=== PATIENT | female | born 1990 | race Caucasian/White ===

== ENCOUNTER 2018-12-25 11:59 | Emergency (ER) | payer SELFPAY ==
[2018-12-25 12:04] VITALS: BMI 18.8
--- NOTE | 2018-12-25 12:27 | PDOC ---
History of Present Illness <Laquita Díaz - Last Filed: 12/25/18 18:01> - General History Source: Patient Exam Limitations: No Limitations - History of Present Illness Initial Comments: 28 yo F w a hx of kidney stones, kidney infections, and migraines presents to the [place] ER with Right flank pain which radiates to her RLQ and to her groin. She states she has a hx of many kidney stones and this feels very similar to all of her stones. She recently moved from [place] to [place] and does not yet have a PCP but saw Dr. Del Cid the Urologist for her kidney stones last week. She received an ultrasound there which showed that she has a stone. Today she has taken 650 mg of tylenol as well as 600 mg of ibuprofen with minimal relief of her flank pain. She now rates the pain as 7/10 in intensity. She has tried copius hydration, drinking lemon juice, and celery juice, and applying external heating pads with minimal relief. In the past all of her stones have passed on their own without needing lithotripsy or other urological intervention. She endorses dysuria as well as urinary frequency but denies urgency or hesitancy. Her LMP was in mid August secondary to her control pills which she takes that she says cause her to have a period only once every 6 months. She denies any abnormal vaginal discharge, vaginal bleeding, urgency, hesitancy , fevers, chills, infections, headache, blurry vision, neck pain, SOB, difficulty breathing, upper back pain, chest pain, ankle/arm swelling, urinary retention, vertigo, numbness, tingling, nausea, vomiting, diarrhea, or constipation. PCP: None yet, just moved from [place] Urologist: Dr. Del Cid PSH: Tonsillectomy, cholecystectomy Allergies: Sulfa drugs Social Hx: Drinks recreationally. Denies smoking, or other drug usage. <Osiel Smith - Last Filed: 12/25/18 19:41> - General Chief Complaint: Pain, Acute Stated Complaint: RIGHT FLANK PAIN Time Seen by Provider: 12/25/18 12:02 Past History <Laquita Díaz - Last Filed: 12/25/18 18:01> - Past Medical History COPD: No Other medical history: MIGRAINES - Surgical History Cholecystectomy: Yes - Suicide/Smoking/Psychosocial Hx Smoking History: Never smoked Hx Alcohol Use: No Drug/Substance Use Hx: No <Osiel Smith - Last Filed: 12/25/18 19:41> - Past Medical History Allergies/Adverse Reactions: Allergies Allergy/AdvReac Type Severity Reaction Status Date / Time Sulfa (Sulfonamide Allergy Verified 12/25/18 12:00 Antibiotics) Home Medications: Ambulatory Orders Cephalexin [Keflex] 500 mg PO TID 10 Days #30 capsule 12/25/18 Oxycodone HCl 10 mg PO TID PRN #9 tablet MDD 4 12/25/18 Phenazopyridine HCl [Pyridium] 100 mg PO TID 3 Days #9 tablet 12/25/18 Review of Systems - Review of Systems Able to Perform ROS?: Yes Comments:: CONSTITUTIONAL: Absent: fever, no chills, no fatigue EYES: Absent: visual changes ENT: Absent: ear pain, no sore throat CARDIOVASCULAR: Absent: chest pain, no palpitations RESPIRATORY: Absent: cough, no SOB GI: Present: Abdominal pain Absent: no nausea, no vomiting, no constipation, no diarrhea GENITOURINARY: Present: Dysuria, frequency Absent: no hematuria MUSKULOSKELETAL: Present: Flank pain Absent: no arthralgia, no myalgia SKIN: Absent: rash NEURO: Absent: headache <Osiel Smith - Last Filed: 12/25/18 19:41> *Physical Exam - Vital Signs Last Vital Signs Temp Pulse Resp BP Pulse Ox 98.5 F 91 H 17 134/80 98 12/25/18 17:48 12/25/18 17:48 12/25/18 17:48 12/25/18 17:48 12/25/18 17:48 <Laquita Díaz - Last Filed: 12/25/18 18:01> - Vital Signs Last Vital Signs Temp Pulse Resp BP Pulse Ox 98.6 F 100 H 15 149/87 97 12/25/18 12:00 12/25/18 12:00 12/25/18 12:00 12/25/18 12:00 12/25/18 12:00 - Physical Exam Comments: GENERAL: Well-appearing, well-nourished. Mild distress. HEENT: Normocephalic, atraumatic. PERRL, EOM intact. CARDIOVASCULAR: Normal S1, S2. Tachycardic rate and regular rhythm. PULMONARY: No evidence of respiratory distress. Lungs clear to auscultation bilaterally. No wheezing, rales or rhonchi. ABDOMEN: + Right sided CVA TTP. Mild RLQ TTP. Soft, non-distended. Normal BS. EXTREMITIES: Normal ROM in all four extremities. No gross deformities. SKIN: Warm, dry. No rash NEUROLOGICAL: No focal neurological deficits. <Osiel Smith - Last Filed: 12/25/18 19:41> Moderate Sedation - Procedure Monitoring Vital Signs: Procedure Monitoring Vital Signs Temperature 98.5 F 12/25/18 17:48 Pulse Rate 91 H 12/25/18 17:48 Respiratory Rate 17 12/25/18 17:48 Blood Pressure 134/80 12/25/18 17:48 O2 Sat by Pulse Oximetry (%) 98 12/25/18 17:48 <Laquita Díaz - Last Filed: 12/25/18 18:01> - Procedure Monitoring Vital Signs: Procedure Monitoring Vital Signs Temperature 98.6 F 12/25/18 12:00 Pulse Rate 100 H 12/25/18 12:00 Respiratory Rate 15 12/25/18 12:00 Blood Pressure 149/87 12/25/18 12:00 O2 Sat by Pulse Oximetry (%) 97 12/25/18 12:00 <Osiel Smith - Last Filed: 12/25/18 19:41> ED Treatment Course - LABORATORY CBC & Chemistry Diagram: 12/25/18 12:51 12/25/18 12:51 - ADDITIONAL ORDERS Additional order review: Laboratory Results 12/25/18 12/25/18 12:51 12:19 Sodium 136 Potassium 4.1 Chloride 101 Carbon Dioxide 25 Anion Gap 10 BUN 9 Creatinine 0.7 Creat Clearance w eGFR > 60 Random Glucose 96 Calcium 9.5 Total Bilirubin 0.6 AST 32 ALT 29 Alkaline Phosphatase 56 Total Protein 7.3 Albumin 4.2 Urine Color Yellow Urine Appearance Hazy Urine pH 7.5 Ur Specific [place] 1.010 Urine Protein Negative Urine Glucose (UA) Negative Urine Ketones Negative Urine Blood Negative Urine Nitrite Negative Urine Bilirubin Negative Urine Urobilinogen 0.2 Ur Leukocyte Esterase 1+ H Urine RBC 0-2 Urine WBC 5-10 Ur Epithelial Cells 1+ Urine Bacteria 1+ Urine HCG, Qual Negative 12/25/18 12:51 RBC 4.66 MCV 96.7 H MCHC 32.4 RDW 12.2 MPV 9.3 Neutrophils % 42.1 L Lymphocytes % 46.3 H Monocytes % 8.7 Eosinophils % 2.2 Basophils % 0.7 - Medications Given in the ED: ED Medications Discontinued Medications Generic Name Dose Route Start Last Admin Trade Name Annabelle PRN Reason Stop Dose Admin Hydromorphone HCl 0.5 mg 12/25/18 13:29 12/25/18 14:16 Dilaudid Injection - IVPUSH 12/25/18 13:30 0.5 mg ONCE ONE Administration Hydromorphone HCl 0.5 mg 12/25/18 14:29 12/25/18 15:16 Dilaudid Injection - IVPUSH 12/25/18 14:30 0.5 mg ONCE ONE Administration Ceftriaxone Sodium 1,000 mg/ 50 mls @ 100 mls/hr 12/25/18 14:39 12/25/18 15: 16 Dextrose IVPB 12/25/18 15:08 100 mls/hr ONCE ONE Administration Ketorolac Tromethamine 15 mg 12/25/18 15:15 12/25/18 16:34 Toradol Injection - IVPUSH 12/25/18 15:16 15 mg ONCE ONE Administration Morphine Sulfate 4 mg 12/25/18 12:32 12/25/18 14:17 Morphine Injection - IVPUSH 12/25/18 12:33 Not Given ONCE ONE Sodium Chloride 1,000 ml 12/25/18 12:32 12/25/18 12:55 Normal Saline - IV 12/25/18 12:33 1,000 ml ONCE ONE Administration <Laquita Díaz - Last Filed: 12/25/18 18:01> - LABORATORY CBC & Chemistry Diagram: 12/25/18 12:51 12/25/18 12:51 <Osiel Smith - Last Filed: 12/25/18 19:41> Medical Decision Making - Medical Decision Making 28 yo F w a hx of kidney stones, kidney infections, and migraines presents to the [place] ER with Right flank pain which radiates to her RLQ and to her groin. She states she has a hx of many kidney stones and this feels very similar to all of her stones. She recently moved from [place] to [place] and does not yet have a PCP but saw Dr. Del Cid the Urologist for her kidney stones last week. She received an ultrasound there which showed that she has a stone. Today she has taken 650 mg of tylenol as well as 600 mg of ibuprofen with minimal relief of her flank pain. She now rates the pain as 7/10 in intensity. She has tried copius hydration, drinking lemon juice, and celery juice, and applying external heating pads with minimal relief. In the past all of her stones have passed on their own without needing lithotripsy or other urological intervention. She endorses dysuria as well as urinary frequency but denies urgency or hesitancy. Her LMP was in mid August secondary to her control pills which she takes that she says cause her to have a period only once every 6 months. VS: Tachycardic, otherwise WNL DDx IBNLT: Renal colic, obstructing stone, UTI/Pylo, STD, PID, Appendicitis, ovarian torsion, Ovarian cyst, drug seeking. Plan: cbc, cmp, ua/uc, hcg, renal US, Analgesia, IV hydration, re-assess. Patient was originally offered 4 mg of morphine for analgesia but she denied it saying her body does not metabolize morphine. She is not sure why but her sister who an COMPUTED TOMOGRAPHY TECHNICIAN physician in [facility] spoke with me and said that when she had her gallbladder taken out they gave her very high doses of morphine but it did not seem to work. She only experienced nausea and vomiting but no analgesia. She did respond well to baby doses of dilaudid. So the patient is requesting dilaudid instead of morphine. Her Sister who is a physician acknowledged that this makes her look like a drug seeker however the sister vouched for her saying she isn't a drug seeker [id number] and is just in a significant amount of pain from her kidney stones. - Will administer 0.5 mg of dilaudid for analgesia. (4 mg morphine roughly analgesic equivalent of 0.5 mg of dilaudid) Urine LE is 1+ as there are 5-10 WBCs in urine suggestive of a possible infection such as pylo. - We will treat with Ceftriaxone here in the ED and give keflex TID for 10 days as outpatient. Bloodwork unremarkable. Urine HCG is negative and does not have blood in it. Renal US shows no hydro or stones. Will DC patient with information regarding pyelonephritis. Strict return precautions discussed. <Osiel Smith - Last Filed: 12/25/18 19:41> *DC/Admit/Observation/Transfer <Laquita Díaz - Last Filed: 12/25/18 18:01> - Discharge Dispostion Decision to Admit order: No <Osiel Smith - Last Filed: 12/25/18 19:41> Diagnosis at time of Disposition: Pyelonephritis - Discharge Dispostion Disposition: HOME Condition at time of disposition: Stable - Prescriptions Prescriptions: Cephalexin [Keflex] 500 mg PO TID 10 Days #30 capsule Oxycodone HCl 10 mg PO TID PRN #9 tablet MDD 4 PRN Reason: Pain Phenazopyridine HCl [Pyridium] 100 mg PO TID 3 Days #9 tablet - Referrals Referrals: Wendy Del Cid MD [Staff Physician] - [facility] [Provider Group] Lizandro Molina MD [Staff Physician] - - Patient Instructions Printed Discharge Instructions: Kidney Infection Additional Instructions: You came into the ER with right sided flank pain. We looked at your urine and found that you have an upper urinary tract infection which has ascended to your kidney. This is called pyelonephritis. Please see attached handout for further explanation. We are sending antibiotics and pain meds to your pharmacy. Please make sure to go and pick them up. you take keflex three times a day x 2 weeks. pyridium twice a day as needed for the burning, this can cause orange discoloration you should take motrin/tylenol as needed for mild to moderate pain if severe pain, you can take 1 tablet of oxycodone four times a day (maximum), do not drink, drive or operate machinery as this can make you feel sleepy. Come back to the ER immediately if your pain worsens, you get a fever, start having urinary pain or difficulty, become nauseous, get a headache, have severe flank pain or any other new or worsening concerns. It is extremely important for you to call up a urologist and schedule an appointment in the next 24 to 48 hours. It is also important for you to get a primary care doctor and establish care with one here in [place]. Thank you for coming to the [place] ER. We hope you feel better soon! Print Language: BELIZEAN - Post Discharge Activity Forms/Work/School Notes: Back to Work
[2018-12-25] MEDS ORDERED: morphine CARPU-JECT 4 MG/1 ML DISP.SYRIN IVPUSH ONE (12:32)
[2018-12-25] MEDS ORDERED: SODIUM CHLORIDE 0.9% 500 ML INFUS.BAG IV ONE (12:32)
--- NOTE | 2018-12-25 12:32 | PDOC ---
Attending Attestation - Resident Resident Name: Osiel Smith - ED Attending Attestation I have performed the following: I have examined & evaluated the patient, The case was reviewed & discussed with the resident, I agree w/resident's findings & plan - HPI HPI: 12/25/18 17:57 28 yo F w a hx of kidney stones, kidney infections, and migraines presents to the [place] ER with Right flank pain which radiates to her RLQ and to her groin x 1 week, a/w dysuria, urinary frequency and flank pain, nausea. she states feels similar to prior kidney stones, but also UTIs She has tried copious hydration, drinking lemon juice, and celery juice, and applying external heating pads with minimal relief. In the past all of her stones have passed on their own without needing lithotripsy or other urological intervention. she was seen [address] Del Cid, urologist, had renal sono showing hydro/stone - she has been compliant with regimen and analgesia. not currently sexually active. denies . lmp in August, but on control recently moved to [place] from [place] 12/25/18 17:57 12/25/18 17:58 - Physicial Exam PE: 12/25/18 17:59 NAD, awake and alert, nontoxic, PERRL, EOMI, MMM, nl conjunctiva, anicteric; neck supple. lungs clear, RRR, abdomen soft nontender. no CVAT. PETERS x4, no focal neuro deficits. No peripheral edema. normal color for ethnicity, WWP. pelvic exam with resident Dr Smith, no adnexal tenderness, no cmt, no blood or abnormalities in vaginal vault. - Medical Decision Making 12/25/18 12:33 DDx. renal colic, stone, hydro, UTI, pyelonephritis, electrolyte/metabolic derangements. no abdominal tenderness to suggest abdominal pathology Vital signs reviewed, +mild tachycardia 2/2 pain, no fever, normal HR. Prior notes reviewed, including admissions, discharges and consultations. laboratory results and imaging reviewed, basic labs and lytes/Cr wnl, neg preg test. UA_positive for leuk esterase and WBCs, correlating with clinical acute pyelonephritis. IVF, zofran, dilaudid and toradol for analgesia, were given. (has h/o poor metabolism of morphine, confirmed with pt and family member who is [employer]ER MACHINE OPERATOR physician) risks and benefits of imaging weighted with patient due to radiation risk and age. will do Renal sono to eval for stones and hydro given high suspicion and similar presentation as prior kidney stones. 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 pelvic exam unremarkable, no discharge, normal cervix and adnexa, so defer imaging doubt appy, as no focal tenderness, especially over RLQ. no rebound or guarding. also 1 week out, doubt there is clinical appy at this point. no pelvic sx to suggest ovarian or uterine. IV ceftriaxone for pyelo x 1 dose, DC on keflex for acute pyelo, pyridium x 3 days prn for dysuria. strict return precautions if no improvement in 24-48 hr, dehydration, high fevers, worse pain oxycodone for severe pain, as needed. rx provided. avoid driving or operating machinery with oxycodone. 12/25/18 17:43 12/25/18 17:53 12/25/18 18:00
[2018-12-25 13:11] LABS: BASO % 0.7 % (0-2.0); EOS % 2.2 % (0-4.5); HEMATOCRIT 45.1 % (32.4-45.2); HEMOGLOBIN 14.6 GM/dl (10.7-15.3); LYMPH % 46.3 % (8-40); MCH 31.3 pg (25.7-33.7); MCHC 32.4 g/dl (32.0-36.0); MEAN CELL VOLUME 96.7 fl (80-96); MEAN PLT VOLUME 9.3 fl (7.5-11.1); MONO % 8.7 % (3.8-10.2); NEUT % 42.1 % (42.8-82.8); PLATELET COUNT 265 K/MM3 (134-434); RBC 4.66 M/mm3 (3.60-5.2); RDW 12.2 % (11.6-15.6); WHITE BLOOD COUNT 5.5 K/mm3 (4.0-10.8)
[2018-12-25 13:17] LABS: HCG,QUALITATIVE URINE NEGATIVE
[2018-12-25 13:18] LABS: URINE APPEARANCE HAZY; URINE BILIRUBIN NEGATIVE (NEGATIVE); URINE COLOR YELLOW; URINE GLUCOSE (UA) NEGATIVE (NEGATIVE); URINE KETONE NEGATIVE (NEGATIVE)
[2018-12-25 13:19] LABS: PH,URINE 7.5 (4.5-8); URINE LEUK ESTERASE 1+ (NEGATIVE); URINE NITRITE NEGATIVE (NEGATIVE); URINE PROTEIN NEGATIVE (NEGATIVE); URINE UROBILINOGEN 0.2 (0.2-1.0)
[2018-12-25 13:20] LABS: ALBUMIN 4.2 g/dl (3.4-5.0); ALK PHOS 56 U/L (45-117); ANION GAP 10 MMOL/L (8-16); BILIRUBIN,TOTAL 0.6 mg/dl (0.2-1); BLOOD UREA NITROGEN 9 mg/dl (7-18); CALCIUM 9.5 mg/dl (8.5-10); CHLORIDE 101 mmol/L (98-107); CO2 25 mmol/L (21-32); CREATININE 0.7 mg/dl (0.55-1.3); GLUCOSE,RANDOM 96 mg/dl (74-106); POTASSIUM 4.1 mmol/L (3.5-5.1); SGOT/AST 32 U/L (15-37); SGPT/ALT 29 U/L (13-61); SODIUM 136 mmol/L (136-145); TOT PROT 7.3 g/dl (6.4-8.2)
[2018-12-25] MEDS ORDERED: HYDROmorphone HCL CARPU-JECT 1 MG/1 ML DISP.SYRIN IVPUSH ONE ×2 (13:29→14:29)
[2018-12-25 13:33] LABS: EPI CELLS 1+ /HPF; URINE BACTERIA 1+ /hpf (NEGATIVE); URINE RBC 0-2 /hpf (0-3)
[2018-12-25] MEDS ORDERED: HYDROmorphone HCL CARPU-JECT 1 MG/1 ML DISP.SYRIN ONE ×2 (14:12→15:08)
[2018-12-25] MEDS ORDERED: CEFTRIAXONE 1,000 MG in DEXTROSE 5%-WATER - 50 ML IVPB ONE (14:39)
[2018-12-25] MEDS ORDERED: cefTRIAXone SODIUM 1 GM VIAL ONE (15:09)
[2018-12-25] MEDS ORDERED: KETOROLAC TROMETHAMINE 15 MG/ML VIAL IVPUSH ONE (15:15)
[2018-12-25] MEDS ORDERED: KETOROLAC TROMETHAMINE 15 MG/ML VIAL ONE (16:31)
[2018-12-25 17:48] VITALS: BP 134/80; PULSE 91; TEMP 98.5
== END 2018-12-25 18:20 | disposition home or self-care (01) ==
LOC: FER 11:59
PROC: 3E03329 Introduction of Other Anti-infective into Peripheral Vein, Percutaneous Approach (ICD-10-PCS; principal; 2018-12-25)
PROC: 3E033NZ Introduction of Analgesics, Hypnotics, Sedatives into Peripheral Vein, Percutaneous Approach (ICD-10-PCS; 2018-12-25)
PROC: 3E0333Z Introduction of Anti-inflammatory into Peripheral Vein, Percutaneous Approach (ICD-10-PCS; 2018-12-25)
PROC: 3E0337Z Introduction of Electrolytic and Water Balance Substance into Peripheral Vein, Percutaneous Approach (ICD-10-PCS; 2018-12-25)
DX: N12 Tubulo-interstitial nephritis, not specified as acute or chronic (principal); Z87.442 Personal history of urinary calculi
CPT/HCPCS: 36415; 76775-TC; 80053; 81003; 81015; 84703; 85025; 87086; 99283-25

== ENCOUNTER 2019-01-02 17:00 | Emergency (ER) | payer SELFPAY ==
[2019-01-02 17:26] VITALS: BMI 18.8
[2019-01-02] MEDS ORDERED: KETOROLAC TROMETHAMINE 30 MG/1 ML VIAL IM ONE (17:47)
--- NOTE | 2019-01-02 17:51 | PDOC ---
Attending Attestation - Resident Resident Name: [place] - ED Attending Attestation I have performed the following: I have examined & evaluated the patient, The case was reviewed & discussed with the resident, I agree w/resident's findings & plan, Exceptions are as noted - Medical Decision Making 01/02/19 17:51 I, Dr. Geovanna Vigil, DO, attest that this document has been prepared under my direction and personally reviewed by me in its entirety. I further attest, that it accurately reflects all work, treatment, procedures and medical decision -making performed by me. 01/02/19 18:20 a/p: 28yo female with R flank pain x 8 days -dx with uti and flank pain a week ago, started on abx -saw dr. Del Cid on wednesday- given im abx and recommended spiral ct -still with pain despite tylenol or motrin -no nausea at this time -no dysuria -no fevers -R cva and R low back ttp -suspect renal colic -will send labs, ua, ct abd/pelvis without contrast -toradol/tylenol for pain -last dose of pain meds were at 1p today <Geovanna Vigil - Last Filed: 01/02/19 18:20> - HPI HPI: 01/02/19 18:28 The patient is a 28 year old female, with a significant past medical history of kidney stones, kidney infections, and migraines of who presents to the emergency department with 8 days of sharp, onset right flank pain and right upper quadrant abdominal pain associated with a burning sensation. The patient notes her symptoms got worse while at work right after she had lunch. The patient notes she took Tylenol and Ibuprofen with mild to no relief at around 1: 30pm. The patient notes her pain is similar to her previous ones. The patient reports she saw her PCP Dr. Del Cid (urologist) on 12/25/18 and had a renal sonogram, which showed hydro/stone. The patient notes she has been compliant with her medication. The patient denies headache or dizziness. The patient denies fever, chills, vomit, diarrhea or constipation The patient denies dysuria, frequency, urgency or hematuria. Allergies: Sulfa (Sulfonamide Antibiotics) Past surgical history: Cholecystectomy Social history: No tobacco use. No alcohol use. PCP: Dr. Wendy Del Cid - Physicial Exam PE: 01/02/19 18:31 Constitutional: (+) Uncomfortable, tearful. Awake, alert, oriented. Head: Normocephalic. Atraumatic Eyes: PERRL. EOMI. Conjunctivae are not pale. ENT: Mucous membranes are moist and intact. Posterior pharynx without exudates or erythema. Uvula midline. Neck: Supple. Full ROM. No lymphadenopathy. Cardiovascular:(+) Heart tachycardic, Regular rate. Regular rhythm. S1, S2 regular. Distal pulses are 2+ and symmetric. Pulmonary/Chest: No evidence of respiratory distress. Clear to auscultation bilaterally No wheezing, rales or rhonchi. Abdominal: (+) Soft and non-distended. No rebound, guarding or rigidity. No organomegaly. No palpable masses. Good bowel sounds. Back: (+) CVA tenderness. Musculoskeletal: No edema. No cyanosis. No clubbing. Full range of motion in all extremities. Nocalf tenderness. Radial/pedal pulses are intact and 2+ bilaterally Skin: Skin is warm and dry. No petechiae. No purpura. Neurological: Alert and oriented to person, place, and time. Cranial nerves II -XII are grossly intact. Normal speech. Strength is grossly symmetric. No sensory deficits. Psychiatric: Good eye contact. Normal interaction, affect and behavior. <Varun Arguello - Last Filed: 01/02/19 18:32> Attestations - Attestations 01/02/19 18:32 Documentation prepared by Varun Arguello, acting as medical equipment technician for Geovanna Vigil DO, MD <Varun Arguello - Last Filed: 01/02/19 18:32>
[2019-01-02] MEDS ORDERED: KETOROLAC TROMETHAMINE 30 MG/1 ML VIAL ONE (17:59)
[2019-01-02 18:17] LABS: BASO % 0.4 % (0-2.0); EOS % 1.9 % (0-4.5); HEMATOCRIT 44.5 % (32.4-45.2); HEMOGLOBIN 14.8 GM/dl (10.7-15.3); LYMPH % 43.3 % (8-40); MCHC 33.4 g/dl (32.0-36.0); MEAN CELL VOLUME 95.8 fl (80-96); MEAN PLT VOLUME 9.4 fl (7.5-11.1); MONO % 8.5 % (3.8-10.2); NEUT % 45.9 % (42.8-82.8); PLATELET COUNT 247 K/MM3 (134-434); RBC 4.64 M/mm3 (3.60-5.2); RDW 11.9 % (11.6-15.6); WHITE BLOOD COUNT 5.6 K/mm3 (4.0-10.8)
[2019-01-02] MEDS ORDERED: ACETAMINOPHEN INJECTION 100 ML IVPB ONE (18:18)
[2019-01-02] MEDS ORDERED: ACETAMINOPHEN 1000 MG/100 ML VIAL (NON FORMULARY) IVPB ONE (18:19)
[2019-01-02 18:27] LABS: ALBUMIN 4.4 g/dl (3.4-5.0); ALK PHOS 62 U/L (45-117); ANION GAP 10 MMOL/L (8-16); BILIRUBIN,TOTAL 0.5 mg/dl (0.2-1); BLOOD UREA NITROGEN 7 mg/dl (7-18); CALCIUM 9.3 mg/dl (8.5-10); CHLORIDE 99 mmol/L (98-107); CO2 26 mmol/L (21-32); CREATININE 0.7 mg/dl (0.55-1.3); GLUCOSE,RANDOM 110 mg/dl (74-106); SGOT/AST 27 U/L (15-37); SGPT/ALT 27 U/L (13-61); SODIUM 135 mmol/L (136-145); TOT PROT 7.4 g/dl (6.4-8.2)
--- NOTE | 2019-01-02 18:30 | PDOC ---
History of Present Illness - General Chief Complaint: Urinary Problem Stated Complaint: UTI, FLANK PAIN Time Seen by Provider: 01/02/19 17:29 History Source: Patient, Old Records Exam Limitations: No Limitations - History of Present Illness Initial Comments: HPI: 28 y/o female presenting to [facility] ER complaining of right flank and RUQ abdominal pain. Symptoms started spontaneously this afternoon after eating lunch. Pain is constant in nature and described as sharp. Endorses nausea without vomiting. Denies dysuria, hematuria, urinary frequency, or vaginal discharge. Pt endorses similar symptoms intermittently over the past several weeks. Seen at this ED on 20 Dec 2018 for similar symptoms. Given IV Rocephin and d/ana with 10 day course of Keflex for possible pyelonephritis. Was referred to Dr. Wendy Del Cid, who requested spiral CT. Pt reports her pain improved with the antibiotics. Pts LMP is Sep 2018. Reports taking OCPs until last August. Has experienced irregular menstruation since that time. Denies sexual activity in last 6 months. PCP: None Social Hx: - Unemployed Medical Hx: - Recurrent UTI - S/p cholecystectomy and post op MRCP for biliary colic - S/p tonsillectomy - Migraines Past History - Past Medical History Allergies/Adverse Reactions: Allergies Allergy/AdvReac Type Severity Reaction Status Date / Time Sulfa (Sulfonamide Allergy Verified 01/02/19 17:18 Antibiotics) Home Medications: Ambulatory Orders Cephalexin [Keflex] 500 mg PO TID 10 Days #30 capsule 12/25/18 Oxycodone HCl 10 mg PO TID PRN #9 tablet MDD 4 12/25/18 Phenazopyridine HCl [Pyridium] 100 mg PO TID 3 Days #9 tablet 12/25/18 Ceftriaxone IM ONCE 01/02/19 COPD: No Disorders: Yes (UTI) Kidney Stones: Yes - Surgical History Cholecystectomy: Yes - Suicide/Smoking/Psychosocial Hx Smoking History: Never smoked Hx Alcohol Use: No Drug/Substance Use Hx: No Review of Systems - Review of Systems Able to Perform ROS?: Yes Comments:: In addition to that documented in the HPI above, the additional ROS was obtained : Constitutional: Denies fevers or chills Head: Denies vision changes ENMT: Denies sore throat CV: Denies chest pain Resp: Denies SOB GI: Denies vomiting or diarrhea : Per HPI MSK: Denies recent trauma Skin: Denies new rashes Neuro: Denies new numbness or tingling or weakness Endocrine: Denies polyuria Heme: Denies bleeding or bruising *Physical Exam - Vital Signs Last Vital Signs Temp Pulse Resp BP Pulse Ox 98.5 F 103 H 16 139/98 98 01/02/19 17:16 01/02/19 17:16 01/02/19 17:16 01/02/19 17:16 01/02/19 17:16 - Physical Exam Comments: Constitutional: Well-developed, well-nourished female in no acute distress but obvious discomfort. Found sitting upright on hospital bed. Alert and oriented x4. Answered all questions appropriately and completely. Speech was non-labored , non-pressured. Head: Normocephalic. No obvious external signs of trauma. Eyes: Sclerae white. Ears: Hearing grossly intact. Nose: No nasal discharge. Neck: Supple, trachea is midline. Cardiovascular / Chest: Borderline tachycardic rate and regular rhythm. No murmur, rubs, clicks, or gallops. Peripheral pulses: radial pulses full. Respiratory: Breathing unlabored. Equal chest rise and fall. Clear to auscultation bilaterally. No stridor, no wheezing, no rhonchi. Gastrointestinal: abdomen is tender in epigastric region without grimace, rebound, or guarding. Globally, abdomen is soft and non-distended. No hepatosplenemegaly. No pulsatile masses. No overlying skin lesions or obvious signs of trauma. Post surgical scars over right side. Neuro: Alert and oriented. Moving all four extremities spontaneously. Skin: Warm, dry, and intact. : Right sided CVA tenderness. Psych: Affect: tearful. Mood: normal. Moderate Sedation - Procedure Monitoring Vital Signs: Procedure Monitoring Vital Signs Temperature 98.5 F 01/02/19 17:16 Pulse Rate 103 H 01/02/19 17:16 Respiratory Rate 16 01/02/19 17:16 Blood Pressure 139/98 01/02/19 17:16 O2 Sat by Pulse Oximetry (%) 98 01/02/19 17:16 ED Treatment Course - LABORATORY CBC & Chemistry Diagram: 01/02/19 17:55 01/02/19 17:55 - RADIOLOGY Radiology Studies Ordered: Category Date Time Status SPIRAL- RENAL-STONE CT [CT] Stat CT Scan 01/02/19 17:46 Ordered - Medications Given in the ED: ED Medications Discontinued Medications Generic Name Dose Route Start Last Admin Trade Name Annabelle PRN Reason Stop Dose Admin Acetaminophen 1,000 mg 01/02/19 18:19 01/02/19 18:25 Ofirmev Injection - IVPB 01/02/19 18:20 1,000 mg ONCE ONE Administration Ketorolac Tromethamine 30 mg 01/02/19 17:47 01/02/19 18:03 Toradol Injection - IM 01/02/19 17:48 30 mg ONCE ONE Administration Medical Decision Making - Medical Decision Making *Reviewed vital signs, nursing notes, and prior visit documentation (if available). 28 y/o female presenting for right sided abdominal pain and right flank pain. Acute on chronic complaint for several weeks. Reported nephrolithiasis noted on clinic U/S. S/p 10 day course of Keflex for possible UTI versus pyelonephritis. Afebrile. Borderline tachycardia without hypotension. Suspect secondary to pain. Will trend with repeat vitals. Physical exam as described above. Will obtain UPreg, UA, urine culture, basic labs, and spiral CT. Pt signed out to night ED attending, Dr. Montemayor. Will follow up on pending labs and CT scan. *DC/Admit/Observation/Transfer Diagnosis at time of Disposition: Right flank pain - Discharge Dispostion Condition at time of disposition: Good - Referrals Referrals: Wendy Del Cid MD [Primary Care Provider] - - Patient Instructions - Post Discharge Activity
[2019-01-02 19:04] LABS: HCG,QUALITATIVE URINE Negative
[2019-01-02] MEDS ORDERED: SODIUM CHLORIDE 0.9% 1000 ML INFUS.BAG IV ONE (19:05)
[2019-01-02 19:06] LABS: URINE APPEARANCE Clear; URINE BILIRUBIN Negative (NEGATIVE); URINE COLOR Yellow; URINE GLUCOSE (UA) Negative (NEGATIVE); URINE KETONE Negative (NEGATIVE); URINE LEUK ESTERASE 1+ (NEGATIVE); URINE NITRITE Negative (NEGATIVE); URINE PROTEIN Negative (NEGATIVE); URINE UROBILINOGEN 0.2 (0.2-1.0)
--- NOTE | 2019-01-02 19:15 | PDOC ---
*Physical Exam - Vital Signs Last Vital Signs Temp Pulse Resp BP Pulse Ox 98.5 F 103 H 16 139/98 98 01/02/19 17:16 01/02/19 17:16 01/02/19 17:16 01/02/19 17:16 01/02/19 17:16 ED Treatment Course - LABORATORY CBC & Chemistry Diagram: 01/02/19 17:55 01/02/19 17:55 - ADDITIONAL ORDERS Additional order review: Laboratory Results 01/02/19 01/02/19 17:55 17:39 Sodium 135 L Potassium 4.0 Chloride 99 Carbon Dioxide 26 Anion Gap 10 BUN 7 Creatinine 0.7 Creat Clearance w eGFR > 60 Random Glucose 110 H Calcium 9.3 Total Bilirubin 0.5 AST 27 ALT 27 Alkaline Phosphatase 62 Total Protein 7.4 Albumin 4.4 Urine Color Yellow Urine Appearance Clear Urine pH 6.0 Ur Specific [place] 1.015 Urine Protein Negative Urine Glucose (UA) Negative Urine Ketones Negative Urine Blood Negative Urine Nitrite Negative Urine Bilirubin Negative Urine Urobilinogen 0.2 Ur Leukocyte Esterase 1+ H Urine HCG, Qual Negative 01/02/19 17:55 RBC 4.64 MCV 95.8 MCHC 33.4 RDW 11.9 MPV 9.4 Neutrophils % 45.9 Lymphocytes % 43.3 H Monocytes % 8.5 Eosinophils % 1.9 Basophils % 0.4 - Medications Given in the ED: ED Medications Discontinued Medications Generic Name Dose Route Start Last Admin Trade Name Freq PRN Reason Stop Dose Admin Acetaminophen 1,000 mg 01/02/19 18:19 01/02/19 18:25 Ofirmev Injection - IVPB 01/02/19 18:20 1,000 mg ONCE ONE Administration Ketorolac Tromethamine 30 mg 01/02/19 17:47 01/02/19 18:03 Toradol Injection - IM 01/02/19 17:48 30 mg ONCE ONE Administration Progress Note - Progress Note Progress Note: Care of this patient received from . Patient has a history of pyelonephritis seen here on 12/27/18 and treated with Keflex. She saw Dr.Nadil Del Cid, urologist for follow-up. She subsequently had onset of right flank pain and presents here for evaluation. Urinalysis here is equivocal for UTI with 1+ leukocyte esterase, 2-5 RBCs/0-2 WBCs/1+ bacteria Urine for culture and sensitivity sent Renal stone protocol spiral CT performed to evaluate for stone/complicated pyelonephritis. Results of CT as per Dr. Winslow of the radiology staff: Nonobstructing 2 mm stone in the pelvis of the right kidney. Hydronephrosis/hydroureter not present. No obstructing stones seen. No evidence of perinephric abscess/ renal stranding or other inflammatory changes Clinical presentation most consistent with uncomplicated acute pyelonephritis. Since previous culture and sensitivity is registered as "no growth",it is unclear why patient continues to have pain and has urinalysis possibly consistent with urinary tract infection. Pending results of current culture and sensitivity, the patient will be started on Levaquin 750 mg daily for with first dose given here in the emergency room. The patient continues to have pain (tearful) despite IV ketorolac/IV acetaminophen. She states that when she was seen in the emergency room here , she received Dilaudid IV with good relief of her pain. Also, she was given oral narcotic prescription at that time for outpatient use. She states that this was also effective. Patient given 0.5 mg Dilaudid IV with good relief of her right flank pain. Patient will be discharged with prescriptions for Levaquin 750 mg daily; she will also be given a small (#6) prescription for Percocet 5/325 to be used as needed for severe pain. Outpatient follow-up referral information for Dr. Rodriguez (urology staff) provided for the patient. Patient also asked for referral for an bullet slug casting machine operator since she she does not have a general medical doctor. Referral information for Dr. Martin provided. Patient should return to the emergency room if she has severe, unrelenting pain/ vomiting/high fever *DC/Admit/Observation/Transfer Diagnosis at time of Disposition: Right flank pain, Pyelonephritis - Discharge Dispostion Disposition: HOME Condition at time of disposition: Stable - Prescriptions Prescriptions: levoFLOXacin [Levaquin] 750 mg PO DAILY #7 tab Oxycodone HCl/Acetaminophen [Percocet 5-325 mg Tablet] 1 tab PO Q6H PRN #6 tablet MDD 3 tabs PRN Reason: Severe Pain - Referrals Referrals: Reji Rodriguez MD [Staff Physician] - Tayler Martin MD [Staff Physician] - - Patient Instructions Printed Discharge Instructions: DI for Kidney Infection Additional Instructions: Drink plenty of water Stop Keflex; begin Levaquin 750 mg daily for the next 7 days Acetaminophen/ibuprofen/naproxen as needed for gpic-iw-yaxirugt pain Percocet 5/325 one tablet up to 3 times a day as needed for severe pain Return to ER if you have severe, persistent pain/vomiting/high fever Follow-up with urologist within the next 5 days Follow-up with bullet slug casting machine operator, Dr Martin within the next 7-10 days - Post Discharge Activity
[2019-01-02 19:36] LABS: URINE BACTERIA 1+ /hpf (NEGATIVE); URINE RBC 0-2 /hpf (0-3)
[2019-01-02 20:16] VITALS: BP 116/68; PULSE 88; TEMP 98
[2019-01-02] MEDS ORDERED: HYDROmorphone HCL CARPU-JECT 1 MG/1 ML DISP.SYRIN IVPUSH ONE (20:35)
[2019-01-02] MEDS ORDERED: HYDROmorphone HCL CARPU-JECT 1 MG/1 ML DISP.SYRIN ONE (20:37)
== END 2019-01-02 21:49 | disposition home or self-care (01) ==
LOC: FER 17:00
PROC: 3E0233Z Introduction of Anti-inflammatory into Muscle, Percutaneous Approach (ICD-10-PCS; principal; 2019-01-02)
PROC: 3E033NZ Introduction of Analgesics, Hypnotics, Sedatives into Peripheral Vein, Percutaneous Approach (ICD-10-PCS; 2019-01-02)
PROC: 3E0337Z Introduction of Electrolytic and Water Balance Substance into Peripheral Vein, Percutaneous Approach (ICD-10-PCS; 2019-01-02)
DX: R10.31 Right lower quadrant pain (principal)
CPT/HCPCS: 36415; 74176-TC; 80053; 81003; 81015; 84703; 85025; 87086; 99283-25; J0131; J7030